=== PATIENT | female | born 1960 | race Caucasian/White ===

== ENCOUNTER → 2016-04-23 | Outpatient (CLI) | payer OTHER ==
[~2016-04-23] MED LIST: ALKA-SELTZER HE1 TEF PO; ATIVAN 0.50.5 MG/TAB PO; BYSTOLIC5 MG PO; CALCIUM CITRAT950 MG PO; CHLOR-TABS4 MG PO; FLEXERIL 1010 MG/TAB PO; FLONASEALLERGY NS; FLOVENT DI50 MCG/Act IH; GAVISCON ESRF360 ML PO; HCTZ 25MG TAB25 MG PO; MAGNESIUM250 M1 PO; NORCO 325 MG-51 TAB PO; PEPCID 20MG TAB20 MG PO; PRAVACHOL 20MG20 MG PO; PRILOSEC 20MG20 MG PO; TOPROL XL 25MG25 MG PO; TYLENOL 500MG500 MG PO; TYLENOL EXTRA500 M1 PO; VITAMIN D31000 IU PO
== END ==
LOC: COL.RAD 10:16
DX: K76.89 Other specified diseases of liver (principal); R10.11 Right upper quadrant pain

== ENCOUNTER → 2016-05-11 | Outpatient (CLI) | payer OTHER | LOC: COL.RAD 09:19 | DX: R10.11 Right upper quadrant pain (principal) | CPT/HCPCS: A9537; J2805 ==

== ENCOUNTER → 2016-06-01 | Outpatient (CLI) | payer OTHER | LOC: COL.RAD 05-29 10:30 | DX: R93.2 Abnormal findings on diagnostic imaging of liver and biliary tract (principal) | CPT/HCPCS: Q9967 ==

== ENCOUNTER 2016-06-08 07:32 | Day surgery (SDC) | payer OTHER ==
[2016-06-08] VITALS (8 sets, daily range): BP systolic 124–136; BP diastolic 66–83; PULSE 72–85; TEMP 97.1–97.3
[~2016-06-08] VITALS: Ht 172.7 cm; Wt 71.2 kg
[~2016-06-08 07:32] MED LIST changes: -ALKA-SELTZER HE1 TEF PO; -CALCIUM CITRAT950 MG PO; -CHLOR-TABS4 MG PO; -FLONASEALLERGY NS; -FLOVENT DI50 MCG/Act IH; -GAVISCON ESRF360 ML PO; -NORCO 325 MG-51 TAB PO; -PEPCID 20MG TAB20 MG PO; -PRAVACHOL 20MG20 MG PO; -TOPROL XL 25MG25 MG PO
[2016-06-08] MEDS ORDERED: TOPROL XL 25MG25 MG PO (08:32)
[2016-06-08] MEDS ORDERED: PRAVACHOL 20MG20 MG PO (08:32)
[2016-06-08] MEDS ORDERED: GAVISCON ESRF360 ML PO (08:34)
[2016-06-08] MEDS ORDERED: ALKA-SELTZER HE1 TEF PO (08:35)
[2016-06-08] MEDS ORDERED: PEPCID 20MG TAB20 MG PO (08:36)
[2016-06-08] MEDS ORDERED: CHLOR-TABS4 MG PO (08:37)
[2016-06-08] MEDS ORDERED: FLOVENT DI50 MCG/Act IH (08:38)
[2016-06-08] MEDS ORDERED: CALCIUM CITRAT950 MG PO (08:40)
[2016-06-08] MEDS ORDERED: NORCO 325 MG-51 TAB PO (11:40)
== END 2016-06-08 15:30 | disposition home or self-care (01) ==
LOC: SDCO 07:32
DX: K81.1 Chronic cholecystitis (principal); I10 Essential (primary) hypertension
CPT/HCPCS: J0690; J1100; J1885; J2300; J2405; J2704; J2710; J3010; Q9967

== ENCOUNTER 2016-07-27 07:32 | Day surgery (SDC) | payer OTHER ==
[~2016-07-27] VITALS: Ht 172.7 cm; Wt 70.8 kg
[~2016-07-27 07:32] MED LIST changes: +ALKA-SELTZER HE1 TEF PO; +CALCIUM CITRAT950 MG PO; +CHLOR-TABS4 MG PO; +FLOVENT DI50 MCG/Act IH; +GAVISCON ESRF360 ML PO; +NORCO 325 MG-51 TAB PO; +PEPCID 20MG TAB20 MG PO; +PRAVACHOL 20MG20 MG PO; +TOPROL XL 25MG25 MG PO
[2016-07-27 08:15] VITALS: BP 127/94; PULSE 96; TEMP 98.4
[2016-07-27] MEDS ORDERED: PRILOSEC 20MG20 MG PO (08:23)
[2016-07-27] MEDS ORDERED: FLONASEALLERGY NS (08:24)
[2016-07-27 09:20] VITALS: BP 141/86; PULSE 107; TEMP 98
[2016-07-27 09:35] VITALS: BP 128/87; PULSE 94; TEMP 98
[2016-07-27 09:50] VITALS: BP 131/73; PULSE 91; TEMP 98
[2016-07-27 10:05] VITALS: BP 129/84; PULSE 82; TEMP 98
== END 2016-07-27 10:30 | disposition home or self-care (01) ==
LOC: SDCO 07:32
DX: Z12.11 Encounter for screening for malignant neoplasm of colon (principal); K57.30 Diverticulosis of large intestine without perforation or abscess without bleeding; I10 Essential (primary) hypertension; E78.00 Pure hypercholesterolemia, unspecified; K21.9 Gastro-esophageal reflux disease without esophagitis; F41.9 Anxiety disorder, unspecified; Z98.1 Arthrodesis status; Z90.710 Acquired absence of both cervix and uterus; Z90.49 Acquired absence of other specified parts of digestive tract; Z96.612 Presence of left artificial shoulder joint; Z80.42 Family history of malignant neoplasm of prostate; Z80.8 Family history of malignant neoplasm of other organs or systems
CPT/HCPCS: OP; J2250; J2405; J3010; J7030

== ENCOUNTER → 2016-10-16 | Outpatient (CLI) | payer OTHER ==
[~2016-10-16] MED LIST changes: +FLONASEALLERGY NS
== END ==
LOC: COL.RAD 09:30
DX: K21.9 Gastro-esophageal reflux disease without esophagitis (principal); R13.10 Dysphagia, unspecified

== ENCOUNTER → 2016-10-23 | Outpatient (CLI) | payer OTHER | LOC: MC.RAD 10:14 | DX: Z12.31 Encounter for screening mammogram for malignant neoplasm of breast (principal) ==

== ENCOUNTER → 2017-12-02 | Outpatient (CLI) | payer OTHER | LOC: MC.RAD 11:34 | DX: Z12.31 Encounter for screening mammogram for malignant neoplasm of breast (principal) ==

== ENCOUNTER → 2018-01-31 | Outpatient (CLI) | payer OTHER | LOC: COL.PUL 11:06 | DX: R07.89 Other chest pain (principal) ==